=== PATIENT | female | born 1970 | race Caucasian/White ===

== ENCOUNTER 2018-03-23 08:33 | Emergency (ER) | payer MEDICAID ==
[2018-03-23 09:17] LABS: ADD MAN DIFF? NO
[2018-03-23 09:19] LABS: BASOPHILS % 0.6 % (0.0-2.0); EOSINOPHILS # 0.1 10^3/ul (0.0-0.5); EOSINOPHILS % 1.6 % (0.0-7.0); HEMATOCRIT 35.2 % (37.0-47.0); HEMOGLOBIN 11.6 g/dl (12.0-16.0); LYMPHOCYTES # 1.9 10^3/ul (0.8-2.9); LYMPHOCYTES % 30.3 % (15.0-51.0); MEAN CORPUSCULAR HEMOGLOBIN 27.4 pg (29.0-33.0); MEAN CORPUSCULAR VOLUME 83.2 fl (82.0-101.0); MONOCYTE # 0.5 10^3/ul (0.3-0.9); MONOCYTES % 7.4 % (0.0-11.0); NEUTROPHIL # 3.7 10^3/ul (1.6-7.5); NEUTROPHILS % 59.9 % (39.0-77.0); PLATELET COUNT 232 10^3/UL (140-415); RED BLOOD COUNT 4.23 10^6/ul (4.20-5.40); RED CELL DISTRIBUTION WIDTH 14.4 % (11.5-14.5)
[2018-03-23 09:19] LABS: WHITE BLOOD COUNT 6.2 10^3/ul (4.8-10.8)
[2018-03-23 09:52] LABS: ALANINE AMINOTRANSFERASE 18 IU/L (13-69); ALBUMIN 4.3 g/dl (3.3-4.9); ALBUMIN/GLOBULIN RATIO 1.22; ALKALINE PHOSPHATASE 86 IU/L (42-121); ANION GAP 16 (8-16); ASPARTATE AMINO TRANSFERASE 24 IU/L (15-46); BILIRUBIN,INDIRECT 0.6 mg/dl (0-1.1); BILIRUBIN,TOTAL 0.6 mg/dl (0.2-1.3); BLOOD UREA NITROGEN 12 mg/dl (7-20); CALCIUM 9.5 mg/dl (8.4-10.2); CARBON DIOXIDE 25 mmol/L (21-31); CHLORIDE 110 mmol/L (97-110); CREATININE 0.61 mg/dl (0.44-1.00); GLUCOSE 94 mg/dl (70-220); LIPASE 107 U/L (23-300); POTASSIUM 3.4 mmol/L (3.5-5.1); SODIUM 148 mmol/L (135-144); TOTAL PROTEIN 7.8 g/dl (6.1-8.1)
[2018-03-23 09:53] LABS: PARTIAL THROMBOPLASTIN TIME 29.8 Sec (25.0-35.0)
[2018-03-23 10:02] LABS: TROPONIN-I < 0.012 ng/ml (0.000-0.120)
[2018-03-23 13:08] LABS: TROPONIN-I < 0.012 ng/ml (0.000-0.120)
== END 2018-03-23 13:39 | disposition home or self-care (01) ==
LOC: E/R 08:33
DX: R07.9 Chest pain, unspecified (principal); I10 Essential (primary) hypertension
CPT/HCPCS: 36415; 71045; 80053; 81025; 83690; 84484; 85025; 85730; 93005; 99285-25